=== PATIENT | male | born 2005 | race Two or more races ===

== ENCOUNTER 2024-01-18 14:33 | Emergency (ER) | payer OTHER, SELFPAY ==
[2024-01-18 14:40] VITALS: BP 152/96; PULSE 81; RESP 20; TEMP 36.6; O2SAT 97; BMI 25.8
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
[2024-01-18] MEDS: LIDOCAINE 1%-EPI 1:100,000 20 ML INFILTRATI (15:25)
--- NOTE | 2024-01-18 16:03 | CRLHL7_ITS ---
For Patients: As a result of the Cures Act, medical imaging exams and procedure reports are released immediately into your electronic medical record. You may view this report before your referring provider. If you have questions, please contact your health care provider. INDICATION: Trauma TECHNIQUE: Three views right knee FINDINGS/IMPRESSION: Normal alignment. No acute fracture or acute osseous abnormalities are visualized.. Anterior soft tissue edema No large effusion. Dictated by Fabiana Alba MD @ 01/18/2024 4:34:26 PM (Electronically Signed)
== END 2024-01-18 17:13 | disposition home or self-care (01) ==
PROVIDERS: Emergency Provider Emergency Medicine
DX: S81.011A Laceration without foreign body, right knee, initial encounter (principal); V19.9XXA Pedal cyclist (driver) (passenger) injured in unspecified traffic accident, initial encounter
CPT/HCPCS: 12002; 73562; 99282; 99283